=== PATIENT | male | born 1950 | race Caucasian/White ===

== ENCOUNTER 2022-04-05 15:07 | Outpatient (CLI) | payer MEDICARE, OTHER ==
[~2022-04-05] VITALS: Ht 182.9 cm; Wt 145.1 kg
[2022-04-05 16:53] LABS: BASOPHILS % (AUTO) 0.3 % (0-1); EOSINOPHILS # (AUTO) 0.4 X10'3 (0-0.9); EOSINOPHILS % (AUTO) 4.3 % (0-6); LYMPHOCYTES # (AUTO) 1.3 X10'3 (1.1-4.8); LYMPHOCYTES % (AUTO) 15.5 % (21-51); MEAN CORPUSCULAR HGB CONC 34.2 g/dL (33.0-36.5); MEAN CORPUSCULAR VOLUME 84.9 FL (78-98); MONOCYTES # (AUTO) 0.9 X10'3 (0-0.9); MONOCYTES % (AUTO) 10.9 % (2-12); NEUTROPHILS # (AUTO) 5.9 X10'3 (1.8-7.7); PRE OP HEMATOCRIT 41.7 % (42.0-52.0); PRE OP HEMOGLOBIN 14.2 g/dL (14.0-17.9); PRE OP PLATELET COUNT 175 X10'3 (140-440); RED BLOOD COUNT 4.91 X10'6 (4.70-6.10); RED CELL DISTRIBUTION WIDTH 14.6 % (11.5-14.5)
[2022-04-05 17:07] LABS: ALBUMIN 3.8 G/DL (3.4-5.0); ALKALINE PHOSPHATASE 75 IU/L (46-116); BLOOD UREA NITROGEN 16 MG/DL (7-18); BUN/CREATININE RATIO 21.6 (5.4-32.0); CALCIUM 9.1 MG/DL (8.5-10.1); CHLORIDE 101 MMOL/L (99-107); CREATININE 0.74 MG/DL (0.60-1.10); PRE OP ALT 41 U/L (30-65); PRE OP ANION GAP 9 (8-16); PRE OP AST 20 U/L (10-37); PRE OP BILIRUB, TOTAL 0.5 MG/DL (0.0-1.0); PRE OP GLUCOSE 99 MG/DL (70-104); PRE OP POTASSIUM 4.2 MMOL/L (3.4-5.1); PRE OP SODIUM 137 MMOL/L (135-145); TOTAL CARBON DIOXIDE 27.1 MMOL/L (24-32); TOTAL PROTEIN 7.7 G/DL (6.4-8.2); eGFR > 90 ML/MIN
[2022-04-05] MEDS ORDERED: HYDR-3973 PO (17:21)
[2022-04-05] MEDS ORDERED: MULT-1085 PO (17:21)
[2022-04-05] MEDS ORDERED: PRAV20TA4 PO (17:21)
[2022-04-05] MEDS ORDERED: CELE-85 PO (17:21)
[2022-04-05] MEDS ORDERED: FLO0.4C PO (17:21)
[2022-04-05] MEDS ORDERED: GABA-534 (17:21)
[2022-04-05] MEDS ORDERED: DUTA0.5C36 PO (17:21)
[2022-04-10] MEDS ORDERED: ringers solution, lacted 1,000 ML IV SCH (05:00)
[2022-04-10] MEDS ORDERED: metoclopramide 5 mg/ml inj IV ONE (05:30)
[2022-04-10] MEDS ORDERED: oxyCODONE SR 10mg (sust. release) tab -2 tabs (20mg) PO ONE (05:30)
[2022-04-10] MEDS ORDERED: gabapentin 300mg capsule PO ONE (05:30)
[2022-04-10] MEDS ORDERED: famotidine 20mg tablet PO ONE (05:30)
[2022-04-10] MEDS ORDERED: acetaminophen 325mg tablet PO ONE (05:30)
[2022-04-10] MEDS ORDERED: ceFAZolin inj. 3,000 MG in normal saline 100ml IV soln 100 ML IV ONE (05:30)
[2022-04-10] MEDS ORDERED: celeCOXIB 100mg capsule PO ONE (05:30)
[2022-04-10] MEDS ORDERED: vancomycin 1,500 MG in NS 300ml IV soln IV ONE (05:30)
[2022-04-10] MEDS ORDERED: tranexamic acid inj. 1,000 MG in normal saline 100ml IV soln 90 ML IV ONE (05:30)
== END 2022-04-05 23:59 | disposition home or self-care (01) ==
LOC: LAB 15:07 → EDSTATUS 04-10 11:15
PROVIDERS: ATTEND Orthopaedic Surgery
DX: Z01.818 Encounter for other preprocedural examination (principal); M17.12 Unilateral primary osteoarthritis, left knee
CPT/HCPCS: 36415; 80053; 85025; 86885; 86900; 86901; 87081; 93005; J0690; J3370; J3490; J7040; J7120

== ENCOUNTER 2022-05-29 07:10 | Inpatient (IN) | payer MEDICARE, OTHER ==
[2022-05-23 10:49] LABS: ALBUMIN 3.6 G/DL (3.4-5.0); ALBUMIN/GLOBULIN RATIO 0.9 (1.1-1.5); ALKALINE PHOSPHATASE 67 IU/L (46-116); BLOOD UREA NITROGEN 12 MG/DL (7-18); CALCIUM 8.6 MG/DL (8.5-10.1); CHLORIDE 103 MMOL/L (99-107); CREATININE 0.63 MG/DL (0.60-1.10); PRE OP ALT 45 U/L (30-65); PRE OP ANION GAP 7 (8-16); PRE OP AST 29 U/L (10-37); PRE OP BILIRUB, TOTAL 0.5 MG/DL (0.0-1.0); PRE OP GLUCOSE 112 MG/DL (70-104); PRE OP SODIUM 137 MMOL/L (135-145); TOTAL CARBON DIOXIDE 26.8 MMOL/L (24-32); TOTAL PROTEIN 7.6 G/DL (6.4-8.2); eGFR > 90 ML/MIN
[2022-05-23 10:50] LABS: BASOPHILS % (AUTO) 0.4 % (0-1); EOSINOPHILS # (AUTO) 0.2 X10'3 (0-0.9); EOSINOPHILS % (AUTO) 3.3 % (0-6); LYMPHOCYTES # (AUTO) 1.3 X10'3 (1.1-4.8); LYMPHOCYTES % (AUTO) 21.1 % (21-51); MEAN CORPUSCULAR HEMOGLOBIN 28.7 PG (27.0-31.0); MEAN CORPUSCULAR HGB CONC 33.8 g/dL (33.0-36.5); MEAN CORPUSCULAR VOLUME 84.9 FL (78-98); MEAN PLATELET VOLUME 7.1 FL (7.4-10.4); MONOCYTES # (AUTO) 0.8 X10'3 (0-0.9); MONOCYTES % (AUTO) 12.7 % (2-12); NEUTROPHILS # (AUTO) 3.9 X10'3 (1.8-7.7); NEUTROPHILS % (AUTO) 62.5 % (42-75); PRE OP HEMATOCRIT 41.1 % (42.0-52.0); PRE OP HEMOGLOBIN 13.9 g/dL (14.0-17.9); PRE OP PLATELET COUNT 179 X10'3 (140-440); PRE OP POTASSIUM 4.5 MMOL/L (3.4-5.1); RED BLOOD COUNT 4.84 X10'6 (4.70-6.10); RED CELL DISTRIBUTION WIDTH 14.4 % (11.5-14.5)
[~2022-05-29] VITALS: Ht 182.9 cm; Wt 145.2 kg
[2022-05-29] VITALS (13 sets, daily range): BP systolic 96–153; BP diastolic 59–86
[~2022-05-29 07:10] MED LIST: ALBU8HFA INH; CELE-85 PO; DUTA0.5C36 PO; FLO0.4C PO; GABA-534; HYDR-3973 PO; HYDROmorphone inj. 0.5 MG/0.5 ML DISP.SYRIN IV PRN; MULT-1085 PO; PRAV20TA4 PO; acetaminophen 325mg tablet PO ONE; acetaminophen 325mg tablet PO PRN; bisacodyl 10mg suppository rectal RC PRN; celeCOXIB 100mg capsule PO ONE; diphenhydrAMINE 25mg capsule PO PRN; famotidine 20mg tablet PO ONE; gabapentin 300mg capsule PO ONE; magnesium hydroxide 30ml (MOM) UD suspension PO PRN; metoclopramide 5 mg/ml inj IV ONE; naloxone 0.4 mg/ml inj IV PRN; ondansetron/PF 4mg/2ml inj IV PRN; oxyCODONE SR 10mg (sust. release) tab -2 tabs (20mg) PO ONE; ringers solution, lacted 1,000 ML IV SCH; tranexamic acid inj. 1,000 MG in 0.7% saline 100 ML PMX IV ONE; vancomycin 1,500 MG in NS 300ml IV soln IV ONE
--- NOTE | 2022-05-29 07:15 | NUR ---
TOTAL JOINT CHARTING. PT COMPLETED THE 5 DAYS OF HIBICLENS SHOWERS. DID NOT PROVIDE PT WITH NASAL OINTMENT PREOP. STATES WATCHED THE TOTAL JOINT VIDEO AT HOME. CSM'S INTACT - STATES SLIGHT NUMBNESS AND TINGLING TO BILAT LE INTERMITTENTLY. STRONG PALPABLE LEFT DORSAL PEDIS PULSE MARKED. Addendum: 05/29/22 at 0919 by Alexandra Tesfaye RN Amended: Links added.
[2022-05-29] MEDS: ceFAZolin inj. 3,000 MG in normal saline 100ml IV soln 100 ML IV ONE ×2 (07:56→11:10)
[2022-05-29] MEDS ORDERED: ceFAZolin/D5W- 1GM premix 50 ML IV SCH (08:00)
[2022-05-29] MEDS: gabapentin 300mg capsule PO SCH ×3 (08:00→20:11)
[2022-05-29] MEDS: multivitamins, therapeutics tablet PO SCH (08:00)
[2022-05-29] MEDS: ascorbic acid 500mg tablet PO SCH ×2 (08:00→20:11)
[2022-05-29] MEDS: aspirin 325mg tablet PO SCH (08:30)
[2022-05-29] MEDS ORDERED: epiNEPHrine 1 mg/ml inj ONE (10:38)
[2022-05-29] MEDS ORDERED: vancomycin 1,000mg inj ONE (10:38)
[2022-05-29] MEDS ORDERED: cloNIDine hcl/PF 100mcg/ml inj ONE (10:38)
[2022-05-29] MEDS ORDERED: ketorolac trometh. 30mg/ml inj. ONE (10:39)
[2022-05-29] MEDS ORDERED: ROPIVAcaine 0.5% (5mg/ml) 30ml vial ONE (10:39)
[2022-05-29] MEDS ORDERED: MIDAZolam 1mg/ml 10ml vial ONE (10:53)
[2022-05-29] MEDS ORDERED: fentaNYL/PF 50MCG/1 ML 2ML syringe ONE (10:54)
[2022-05-29] MEDS ORDERED: propofol inj 20 ML IV ONE (11:26)
[2022-05-29] MEDS ORDERED: ondansetron/PF 4mg/2ml inj IV PRN (11:45)
[2022-05-29] MEDS ORDERED: proCHLORperazine 10 MG/2 ml inj IV PRN (11:45)
[2022-05-29] MEDS ORDERED: ringers solution, lacted 1,000 ML IV SCH (11:45)
[2022-05-29] MEDS ORDERED: meperidine/PF 25mg/ml syringe IV PRN ×3 (11:45)
[2022-05-29] MEDS ORDERED: morphine 2 MG/ML inj. syringe IV PRN (11:45)
[2022-05-29] MEDS ORDERED: ROPIVAcaine 0.2% (10 MG/5 ML) BOLUS INJECTION ADDCANAL PRN (11:45)
[2022-05-29] MEDS ORDERED: morphine 4 MG/ML inj SYRINge IV PRN (11:45)
[2022-05-29] MEDS: ceFAZolin inj. 3,000 MG in normal saline 100ml IV soln 100 ML IV SCH ×2 (13:00→20:29)
--- NOTE | 2022-05-29 13:17 | NUR ---
Received from OR via BED, accompanied by Anesthesiologist and report given by GAYATRI Anesthesiologist. PATIENT WAKING UP, DENIES PAIN, V/S WNL, SCD ON, 18G TO DYLAN LEVINg to LEFT KNEE C/D/I with POWDER PACK. Addendum: 05/29/22 at 1318 by Sean Esqueda RN Amended: Links added.
[2022-05-29] MEDS: ROPIVAcaine 0.2%/PF PUMP/bolus 545 ML ADDCANAL SCH (13:34)
--- NOTE | 2022-05-29 14:28 | NUR ---
Patient in room ORTHO 4009A. I have received report from JAMISON CANO FROM [facility] and had the opportunity to ask questions and assume patient care.
--- NOTE | 2022-05-29 14:38 | NUR ---
PATIENT HAS MET ALL CRITERIA FOR TRANSFER TO ORTHO FLOOR. VSS. DRESSINGS INTACT. BED LOW, CALL LIGHT PRESENT AND 2 RAILS UP. RN PRESENT TO ACCEPT CARE OF PATIENT AND REPORT HAS BEEN CALLED. ALL QUESTIONS ANSWERED TO ACCEPTING RN. Addendum: 05/29/22 at 1456 by Sean Esqueda RN Amended: Links added.
[2022-05-29] MEDS: potassium cl 20mEq in 1/2 NS 1,000 ML IV SCH ×3 (14:40→22:40)
[2022-05-29] MEDS: oxyCODONE/APAP 10/325mg tablet PO PRN ×2 (15:04→20:15)
[2022-05-29] MEDS ORDERED: tranexamic acid inj. 1,400 MG in normal saline 100ml IV soln 86 ML IV ONE (15:39)
[2022-05-29] MEDS ORDERED: cefazolin/dext.iso 2gm/100ml 100 ML IV SCH (16:00)
[2022-05-29] MEDS: HYDROmorphone 1 mg/ml syringe IV PRN (16:18)
[2022-05-29] MEDS ORDERED: albuterol 2.5 MG/3 ML nebule NEB PRN (18:15)
--- NOTE | 2022-05-29 18:25 | NUR ---
Patient in room ORTHO 4008. I have received report from Angelita SWIFT and had the opportunity to ask questions and assume patient care. Addendum: 05/29/22 at 1918 by Ginger Herrera RN Amended: Links added.
--- NOTE | 2022-05-29 19:41 | NUR ---
Problems reprioritized. Patient report given, questions answered & plan of care reviewed with JAMISON GENTILE.
[2022-05-29] MEDS: tamsulosin 0.4mg capsule PO SCH (20:10)
[2022-05-29] MEDS: sennosides 8.6mg tablet PO SCH (20:11)
[2022-05-29] MEDS ORDERED: vancomycin inj 1,750 MG in normal saline 500ml IV soln 350 ML IV ONE (21:00)
[2022-05-30] VITALS (7 sets, daily range): BP systolic 156–189; BP diastolic 80–93
[2022-05-30] MEDS: potassium cl 20mEq in 1/2 NS 1,000 ML IV SCH ×3 (00:57→22:40)
[2022-05-30] MEDS: oxyCODONE/APAP 10/325mg tablet PO PRN ×4 (01:50→20:30)
[2022-05-30] MEDS: HYDROmorphone 1 mg/ml syringe IV PRN ×3 (04:24→16:27)
[2022-05-30 06:50] LABS: BASOPHILS % (AUTO) 0.2 % (0-1); EOSINOPHILS # (AUTO) 0.2 X10'3 (0-0.9); EOSINOPHILS % (AUTO) 2.1 % (0-6); HEMATOCRIT 37.1 % (42.0-52.0); HEMOGLOBIN 12.7 g/dl (14.0-17.9); LYMPHOCYTES # (AUTO) 1.1 X10'3 (1.1-4.8); LYMPHOCYTES % (AUTO) 11.7 % (21-51); MEAN CORPUSCULAR HEMOGLOBIN 29.2 PG (27.0-31.0); MEAN CORPUSCULAR HGB CONC 34.1 g/dL (33.0-36.5); MEAN CORPUSCULAR VOLUME 85.7 FL (78-98); MEAN PLATELET VOLUME 6.9 FL (7.4-10.4); NEUTROPHILS # (AUTO) 7.1 X10'3 (1.8-7.7); PLATELET COUNT 155 X10'3 (140-440); RED BLOOD COUNT 4.33 X10'6 (4.70-6.10); RED CELL DISTRIBUTION WIDTH 14.3 % (11.5-14.5); WHITE BLOOD COUNT 9.5 X10'3 (4.5-11.0)
[2022-05-30 07:25] LABS: ANION GAP 11 (8-16); CHLORIDE 103 MMOL/L (99-107); POTASSIUM 4.5 MMOL/L (3.5-5.1); SODIUM 140 MMOL/L (135-145); TOTAL CARBON DIOXIDE 25.8 MMOL/L (24-32)
[2022-05-30] MEDS: tamsulosin 0.4mg capsule PO SCH ×2 (08:08→20:31)
[2022-05-30] MEDS: gabapentin 300mg capsule PO SCH ×3 (08:08→20:31)
[2022-05-30] MEDS: multivitamins, therapeutics tablet PO SCH (08:08)
[2022-05-30] MEDS: aspirin 325mg tablet PO SCH (08:08)
[2022-05-30] MEDS: ascorbic acid 500mg tablet PO SCH ×2 (08:09→20:32)
--- NOTE | 2022-05-30 11:12 | NUR ---
Noted pt s/p left TKA. Written protein education with RD contact information placed in patient's chart. Pt on a regular diet and eating well, documented with 100% PO intake. Will continue to follow. Addendum: 05/30/22 at [address] Amended: Links added.
[2022-05-30] MEDS ORDERED: atorvastatin 10mg tablet PO SCH (18:00)
[2022-05-30] MEDS ORDERED: dutasteride 0.5 MG capsule PO SCH (18:00)
--- NOTE | 2022-05-30 18:40 | NUR ---
Patient in room ORTHO 4006. I have received report from Alysa SWIFT and had the opportunity to ask questions and assume patient care. Addendum: 05/30/22 at 1845 by Ginger Herrera RN Amended: Links added.
[2022-05-30] MEDS: sennosides 8.6mg tablet PO SCH (20:32)
[2022-05-30] MEDS: celeCOXIB 100mg capsule PO SCH (20:35)
[2022-05-31] MEDS: oxyCODONE/APAP 10/325mg tablet PO PRN ×3 (01:29→12:49)
[2022-05-31 02:00] VITALS: BP 161/87
[2022-05-31 06:00] VITALS: BP 152/87
--- NOTE | 2022-05-31 06:25 | NUR ---
Problems reprioritized. Patient report given, questions answered & plan of care reviewed with Rama SWIFT. Addendum: 05/31/22 at 0641 by Ginger Herrera RN Amended: Links added.
--- NOTE | 2022-05-31 06:26 | NUR ---
Patient in room ORTHO 4009. I have received report from JAMISON Miles and had the opportunity to ask questions and assume patient care.
--- NOTE | 2022-05-31 06:30 | NUR ---
Problems reprioritized. Patient report given, questions answered & plan of care reviewed with Rama SWIFT. Addendum: 05/31/22 at 0643 by Ginger Herrera RN Amended: Links added.
[2022-05-31] MEDS: gabapentin 300mg capsule PO SCH ×2 (07:04→12:50)
[2022-05-31] MEDS: multivitamins, therapeutics tablet PO SCH (07:04)
[2022-05-31] MEDS: tamsulosin 0.4mg capsule PO SCH (07:04)
[2022-05-31] MEDS: ascorbic acid 500mg tablet PO SCH (07:04)
[2022-05-31] MEDS: celeCOXIB 100mg capsule PO SCH (07:05)
[2022-05-31 08:19] LABS: BASOPHILS % (AUTO) 0.2 % (0-1); EOSINOPHILS # (AUTO) 0.2 X10'3 (0-0.9); EOSINOPHILS % (AUTO) 1.4 % (0-6); HEMATOCRIT 38.2 % (42.0-52.0); HEMOGLOBIN 12.8 g/dl (14.0-17.9); LYMPHOCYTES # (AUTO) 0.9 X10'3 (1.1-4.8); LYMPHOCYTES % (AUTO) 8.2 % (21-51); MEAN CORPUSCULAR HGB CONC 33.5 g/dL (33.0-36.5); MEAN CORPUSCULAR VOLUME 86.7 FL (78-98); MEAN PLATELET VOLUME 6.8 FL (7.4-10.4); MONOCYTES # (AUTO) 1.3 X10'3 (0-0.9); MONOCYTES % (AUTO) 11.4 % (2-12); NEUTROPHILS # (AUTO) 8.7 X10'3 (1.8-7.7); NEUTROPHILS % (AUTO) 78.8 % (42-75); PLATELET COUNT 155 X10'3 (140-440); RED CELL DISTRIBUTION WIDTH 14.4 % (11.5-14.5); WHITE BLOOD COUNT 11.1 X10'3 (4.5-11.0)
[2022-05-31] MEDS: aspirin 325mg tablet PO SCH (08:49)
[2022-05-31] MEDS: ROPIVAcaine 0.2%/PF PUMP/bolus 545 ML ADDCANAL SCH (09:11)
[2022-05-31 10:00] VITALS: BP 141/66
--- NOTE | 2022-05-31 14:00 | NUR ---
I have reviewed and agree with all interventions, assessments performed and documented by JOHN Ontiveros.
--- NOTE | 2022-05-31 15:00 | NUR ---
Patient discharge home with spouse. Discharge information was review with patient and patient spouse, whom both verbalize understanding. Staff then assisted patient to personal vehicle with all belongings.
== END 2022-05-31 15:00 | disposition home or self-care (01) | DRG 470 ==
LOC: PAS 07:10 → ORTHO 4S 17:18
PROVIDERS: ADMIT Orthopaedic Surgery; ATTEND Orthopaedic Surgery
PROC: 3E0T3BZ Introduction of Anesthetic Agent into Peripheral Nerves and Plexi, Percutaneous Approach (ICD-10-PCS; 2022-05-29)
PROC: 3E0T33Z Introduction of Anti-inflammatory into Peripheral Nerves and Plexi, Percutaneous Approach (ICD-10-PCS; 2022-05-29)
PROC: 0SRD069 Replacement of Left Knee Joint with Oxidized Zirconium on Polyethylene Synthetic Substitute, Cemented, Open Approach (ICD-10-PCS; principal; 2022-05-29 10:53)
DX: M17.12 Unilateral primary osteoarthritis, left knee (principal); Z68.41 Body mass index [BMI] 40.0-44.9, adult; E66.01 Morbid (severe) obesity due to excess calories; N40.0 Benign prostatic hyperplasia without lower urinary tract symptoms; Z79.899 Other long term (current) drug therapy
CPT/HCPCS: 36415; 73560; 80051; 80053; 82948; 85025; 86885; 86900; 86901; 87081; 87811; 94760; 97110; 97116; 97161; 97530; A4215; A4615; A7000; C1713; C1776; G0378; J0171; J0690; J0735; J1170; J1885; J2250; J2704; J2765; J2795; J3010; J3370; J3480; J3490; J7040; J7120

== ENCOUNTER 2023-02-26 16:12 | Emergency (ER) | payer MEDICARE, OTHER ==
[~2023-02-26] VITALS: Ht 182.9 cm; Wt 136.0 kg
[~2023-02-26 16:12] MED LIST changes: -HYDROmorphone inj. 0.5 MG/0.5 ML DISP.SYRIN IV PRN; -acetaminophen 325mg tablet PO ONE; -acetaminophen 325mg tablet PO PRN; -bisacodyl 10mg suppository rectal RC PRN; -celeCOXIB 100mg capsule PO ONE; -diphenhydrAMINE 25mg capsule PO PRN; -famotidine 20mg tablet PO ONE; -gabapentin 300mg capsule PO ONE; -magnesium hydroxide 30ml (MOM) UD suspension PO PRN; -metoclopramide 5 mg/ml inj IV ONE; -naloxone 0.4 mg/ml inj IV PRN; -ondansetron/PF 4mg/2ml inj IV PRN; -oxyCODONE SR 10mg (sust. release) tab -2 tabs (20mg) PO ONE; -ringers solution, lacted 1,000 ML IV SCH; -tranexamic acid inj. 1,000 MG in 0.7% saline 100 ML PMX IV ONE; -vancomycin 1,500 MG in NS 300ml IV soln IV ONE
[2023-02-26 16:22] VITALS: BP 161/79
[2023-02-26] MEDS ORDERED: bacitracin 15gm ointment TP ONE (17:30)
[2023-02-26] MEDS ORDERED: LIDOcaine 1% 30ml preserv. free vial IJ ONE (17:30)
[2023-02-26] MEDS ORDERED: LIDOcaine 1% (10mg/ml)w/preservative inj. 20ml MDV ONE (17:40)
== END 2023-02-26 18:12 | disposition home or self-care (01) ==
LOC: ER 16:13
DX: S61.212A Laceration without foreign body of right middle finger without damage to nail, initial encounter (principal); Z79.899 Other long term (current) drug therapy; W45.8XXA Other foreign body or object entering through skin, initial encounter; Y93.89 Activity, other specified; Y92.89 Other specified places as the place of occurrence of the external cause; Y99.8 Other external cause status
CPT/HCPCS: 12001; 73140; 99283; J3490

== ENCOUNTER 2024-03-02 09:31 | Day surgery (SDC) | payer MEDICARE, OTHER ==
[2024-02-28 12:18] LABS: BASOPHILS % (AUTO) 0.2 % (0-1); EOSINOPHILS # (AUTO) 0.3 X10'3 (0-0.9); HEMATOCRIT 41.9 % (42.0-52.0); HEMOGLOBIN 14.4 g/dl (14.0-17.9); LYMPHOCYTES # (AUTO) 1.6 X10'3 (1.1-4.8); LYMPHOCYTES % (AUTO) 19.2 % (21-51); MEAN CORPUSCULAR HEMOGLOBIN 29.7 PG (27.0-31.0); MEAN CORPUSCULAR HGB CONC 34.5 g/dL (33.0-36.5); MEAN CORPUSCULAR VOLUME 86.1 FL (78-98); MONOCYTES # (AUTO) 0.8 X10'3 (0-0.9); MONOCYTES % (AUTO) 9.2 % (2-12); NEUTROPHILS # (AUTO) 5.7 X10'3 (1.8-7.7); NEUTROPHILS % (AUTO) 68.4 % (42-75); PLATELET COUNT 185 X10'3 (140-440); RED BLOOD COUNT 4.86 X10'6 (4.70-6.10); RED CELL DISTRIBUTION WIDTH 14.5 % (11.5-14.5); WHITE BLOOD COUNT 8.4 X10'3 (4.5-11.0)
[2024-02-28 12:20] LABS: APTT 25 SECONDS (22-32)
[2024-02-28 12:23] LABS: ALBUMIN 3.5 G/DL (3.4-5.0); ANION GAP 11 (8-16); BLOOD UREA NITROGEN 16 MG/DL (7-18); BUN/CREATININE RATIO 19.5 (10.0-20.0); CALCIUM 8.5 MG/DL (8.5-10.1); CHLORIDE 104 MMOL/L (99-107); CHOL/HDL RATIO 2.8 (0.00-4.99); CHOLESTEROL 164 MG/DL (0-200); CREATININE 0.82 MG/DL (0.60-1.10); HDL CHOLESTEROL 59 MG/DL (35-60); LDL CHOLESTEROL 86 MG/DL (50-100); POTASSIUM 4.1 MMOL/L (3.5-5.1); SODIUM 140 MMOL/L (135-145); TOTAL CARBON DIOXIDE 25.2 MMOL/L (24-32); TRIGLYCERIDES 263 MG/DL (20-135); eGFR > 90 ML/MIN
[2024-02-28 12:26] LABS: GLUCOSE 120 MG/DL (70-104); INR 0.9 INR
[~2024-03-02] VITALS: Ht 177.8 cm; Wt 152.9 kg
[2024-03-02] VITALS (7 sets, daily range): BP systolic 144–189; BP diastolic 49–100; PULSE 67–83; RESP 16; TEMP 97.7; O2SAT 93–95
[~2024-03-02 09:31] MED LIST changes: +CELE-127 PO; -CELE-85 PO; -GABA-534; +GABA-535 PO
[2024-03-02] MEDS ORDERED: PRAV80TA3 PO (10:18)
[2024-03-02] MEDS ORDERED: ALBU18HF2 INH (10:18)
[2024-03-02] MEDS: diphenhydrAMINE 25mg capsule PO PRN (10:54)
[2024-03-02] MEDS: LORazepam 0.5 MG tablet PO PRN (10:54)
[2024-03-02] MEDS: normal saline 1,000 ML IV SCH (10:55)
[2024-03-02] MEDS ORDERED: fentaNYL/PF 50MCG/1 ML 2ML syringe ONE (13:12)
[2024-03-02] MEDS ORDERED: heparin 1,000unit/ml 10ml vial 10 ML ONE (13:12)
[2024-03-02] MEDS ORDERED: LIDOcaine 1% (10mg/ml) 2ml vial ONE (13:12)
[2024-03-02] MEDS ORDERED: iohexol 350MG/ML 100ml bottle IV ONE (13:12)
[2024-03-02] MEDS ORDERED: midazolam 1 mg/ML 2ml injection ONE (13:12)
[2024-03-02] MEDS ORDERED: verapamil 2.5 mg/ml inj IV ONE (13:12)
[2024-03-02] MEDS ORDERED: nitroGLYCERIN 500mcg/5mL D5W 5 ML IV ONE (13:15)
== END 2024-03-02 16:10 | disposition home or self-care (01) ==
LOC: SSTAY O 09:31
PROVIDERS: ATTEND Student in an Organized Health Care Education/Training Program
DX: R94.39 Abnormal result of other cardiovascular function study (principal); I25.10 Atherosclerotic heart disease of native coronary artery without angina pectoris; E78.00 Pure hypercholesterolemia, unspecified; G43.909 Migraine, unspecified, not intractable, without status migrainosus; G62.9 Polyneuropathy, unspecified; M19.90 Unspecified osteoarthritis, unspecified site; Z79.891 Long term (current) use of opiate analgesic; Z79.899 Other long term (current) drug therapy; Z79.01 Long term (current) use of anticoagulants
CPT/HCPCS: 36415; 80048; 80061; 85025; 85610; 85730; 93005; 93458; 99152; J1644; J2250; J3010; J3490; J7030; Q0163; Q9967; A6258; A6402; C1894

== ENCOUNTER 2024-06-23 14:03 | Outpatient (CLI) | payer MEDICARE, OTHER ==
[~2024-06-23 14:03] MED LIST changes: +ALBU18HF2 INH; -ALBU8HFA INH; -DUTA0.5C36 PO; -FLO0.4C PO; -PRAV20TA4 PO; +PRAV80TA3 PO
== END 2024-06-23 23:59 | disposition home or self-care (01) ==
LOC: RAD 14:03
PROVIDERS: ATTEND Student in an Organized Health Care Education/Training Program
DX: N43.3 Hydrocele, unspecified (principal); N44.2 Benign cyst of testis; N50.812 Left testicular pain
CPT/HCPCS: 76870; 93976

== ENCOUNTER 2024-08-18 15:58 | Emergency (ER) | payer MEDICARE, OTHER ==
[~2024-08-18] VITALS: Ht 182.9 cm; Wt 161.5 kg
[2024-08-18 16:18] VITALS: BP 167/108; PULSE 113; TEMP 97.7; O2SAT 96
[2024-08-18] MEDS ORDERED: SULF1TAB49 PO (17:49)
[2024-08-18] MEDS ORDERED: FURO-150 PO (17:49)
[2024-08-18 18:44] VITALS: RESP 20
== END 2024-08-18 18:45 | disposition home or self-care (01) ==
LOC: ER 15:59
DX: R60.0 Localized edema (principal); L03.115 Cellulitis of right lower limb; I89.0 Lymphedema, not elsewhere classified; Z79.899 Other long term (current) drug therapy; Z79.2 Long term (current) use of antibiotics
CPT/HCPCS: 99283

== ENCOUNTER 2025-02-23 09:53 | Day surgery (SDC) | payer MEDICARE, OTHER ==
[2025-02-19 11:22] LABS: BASOPHILS # (AUTO) 0.1 X10'3 (0-0.2); BASOPHILS % (AUTO) 0.6 % (0-1); EOSINOPHILS # (AUTO) 0.5 X10'3 (0-0.9); EOSINOPHILS % (AUTO) 4.7 % (0-6); HEMATOCRIT 38.8 % (42.0-52.0); HEMOGLOBIN 13.3 g/dl (14.0-17.9); LYMPHOCYTES # (AUTO) 1.5 X10'3 (1.1-4.8); LYMPHOCYTES % (AUTO) 14.8 % (21-51); MEAN CORPUSCULAR HEMOGLOBIN 28.4 PG (27.0-31.0); MEAN CORPUSCULAR HGB CONC 34.2 g/dL (33.0-36.5); MEAN CORPUSCULAR VOLUME 82.9 FL (78-98); MEAN PLATELET VOLUME 7.2 FL (7.4-10.4); MONOCYTES # (AUTO) 0.9 X10'3 (0-0.9); MONOCYTES % (AUTO) 9.5 % (2-12); NEUTROPHILS % (AUTO) 70.4 % (42-75); PLATELET COUNT 154 X10'3 (140-440); RED BLOOD COUNT 4.68 X10'6 (4.70-6.10); RED CELL DISTRIBUTION WIDTH 15.9 % (11.5-14.5)
[2025-02-19 11:35] LABS: APTT 26 SECONDS (22-32); INR 1.1 INR; PROTHROMBIN TIME 11.3 SECONDS (9.0-12.0)
[2025-02-19 11:40] LABS: ALBUMIN 3.6 G/DL (3.4-5.0); ANION GAP 8 (8-16); BLOOD UREA NITROGEN 50 MG/DL (7-18); BUN/CREATININE RATIO 24.9 (10.0-20.0); CALCIUM 8.7 MG/DL (8.5-10.1); CHLORIDE 100 MMOL/L (99-107); CHOL/HDL RATIO 2.4 (0.00-4.99); CHOLESTEROL 130 MG/DL (0-200); CREATININE 2.01 MG/DL (0.60-1.10); GLUCOSE 99 MG/DL (70-104); HDL CHOLESTEROL 55 MG/DL (35-60); LDL CHOLESTEROL 60 MG/DL (50-100); POTASSIUM 3.5 MMOL/L (3.5-5.1); SODIUM 139 MMOL/L (135-145); TRIGLYCERIDES 120 MG/DL (20-135); eGFR 33 ML/MIN
[2025-02-23] VITALS (12 sets, daily range): BP systolic 100–127; BP diastolic 40–77; PULSE 66–72; RESP 13–15; TEMP 97.9; O2SAT 96–97
[~2025-02-23] VITALS: Ht 182.9 cm; Wt 142.7 kg
[~2025-02-23 09:53] MED LIST changes: -ALBU18HF2 INH; +FURO-150 PO; +GABA-1555 PO; -GABA-535 PO; +TAMS-55 PO
[2025-02-23] MEDS ORDERED: VALS40TA11 PO (10:16)
[2025-02-23] MEDS ORDERED: AMI200T PO (10:16)
[2025-02-23] MEDS ORDERED: ROSU40TA89 PO (10:17)
[2025-02-23] MEDS ORDERED: FURO40TA4 PO (10:17)
[2025-02-23] MEDS ORDERED: POTA-366 PO (10:17)
[2025-02-23] MEDS ORDERED: METO5TAB7 PO (10:17)
[2025-02-23] MEDS ORDERED: CARV3.122 PO (10:18)
[2025-02-23] MEDS ORDERED: EMPA10TA PO (10:18)
[2025-02-23] MEDS ORDERED: APIX5TAB3 PO (10:18)
[2025-02-23] MEDS: MIDAZolam 1mg/ml 10ml vial IV ONE (14:04)
[2025-02-23] MEDS: fentaNYL/PF 50MCG/1 ML 2ML syringe IV ONE (14:04)
[2025-02-23] MEDS: normal saline 1000ml 1,000 ML IV SCH (14:04)
--- NOTE | 2025-02-23 14:13 | ELECTROCARDIOGRAPH REPORT ---
[facility] Test Date: 2025-02-23 Test Time: 14:10:46 Pat Name: IRENA MCGOVERN Department: [facility] Patient ID: [facility]-[id number] Room: Gender: M Fitness Coach: SHANELL : 1950 Requested By: AJ FLORES Order Number: [id number] Reading MD: Dr. STEVE Hardin Measurements Intervals [place] Rate: 70 P: 0 [place]: 0 QRS: 72 QRSD: 99 T: -88 QT: 378 QTc: 408 Interpretive Statements Atrial fibrillation Borderline repolarization abnormality Electronically Signed On 02-23-2025 17:52:[address] STEVE Hardin Please click the below link to view image of tracing.
--- NOTE | 2025-02-24 07:30 | CARDIOLOGY REPORT ---
DATE OF SERVICE: 02/23/2025 DICTATING PHYSICIAN: Teresita Eubanks MD DATE OF STUDY: 02/23/2025 NAME OF STUDY: Cardioversion. DESCRIPTION OF PROCEDURE: After informed consent was obtained, the patient was brought to cardiac short stay. After gradual increments of Versed and fentanyl and when conscious sedation was obtained, the patient was cardioverted without success. IMPRESSION: Unsuccessful electrical cardioversion to sinus rhythm. Teresita Eubanks MD TID: [id number] RECEIPT: [id number] CARO/ARCADIO
== END 2025-02-23 15:45 | disposition home or self-care (01) ==
LOC: SSTAY O 09:53
PROVIDERS: ATTEND Student in an Organized Health Care Education/Training Program
DX: I48.91 Unspecified atrial fibrillation (principal); I11.0 Hypertensive heart disease with heart failure; I50.9 Heart failure, unspecified; G47.33 Obstructive sleep apnea (adult) (pediatric); M19.90 Unspecified osteoarthritis, unspecified site; G62.9 Polyneuropathy, unspecified; Z79.899 Other long term (current) drug therapy; G43.909 Migraine, unspecified, not intractable, without status migrainosus
CPT/HCPCS: 36415; 80048; 80061; 85025; 85610; 85730; 92960; 93005; J2250; J3010; J7030; Z7610

== ENCOUNTER 2025-10-08 07:30 | Day surgery (SDC) | payer MEDICARE, OTHER ==
[2025-10-07 08:30] LABS: MEAN PLATELET VOLUME 6.5 FL (7.4-10.4); RED CELL DISTRIBUTION WIDTH 15.8 % (11.5-14.5)
[2025-10-07 08:48] LABS: APTT 36 SECONDS (22-32); INR 1.1 INR
[2025-10-07 08:49] LABS: CHOL/HDL RATIO 2.5 (0.00-4.99); CREATININE 1.51 MG/DL (0.60-1.10); LDL CHOLESTEROL 67 MG/DL (50-100); TOTAL CARBON DIOXIDE 31.8 MMOL/L (24-32); eGFR 45 ML/MIN
[~2025-10-08] VITALS: Ht 182.9 cm; Wt 131.1 kg
[~2025-10-08 07:30] MED LIST changes: +AMIO200T76 PO; +CARV3.122 PO; +DABI150C PO; +EMPA10TA PO; -FURO-150 PO; +FURO40TA4 PO; -GABA-1555 PO; +GABA-535 PO; +METO5TAB7 PO; -MULT-1085 PO; +POTA-366 PO; -PRAV80TA3 PO; +ROSU40TA89 PO; +TIRZ2.5P SQ; +VALS40TA11 PO
[2025-10-08 08:00] VITALS: BP 116/65; PULSE 85; RESP 16; TEMP 98.3; O2SAT 97
[2025-10-08] MEDS ORDERED: MIDAZolam 1mg/ml 10ml vial IV ONE (08:20)
[2025-10-08] MEDS ORDERED: fentaNYL/PF 50MCG/1 ML 2ML syringe IV ONE (08:20)
[2025-10-08] MEDS: potassium Cl 20 mEq SR tablet PO STA (08:29)
[2025-10-08] MEDS: normal saline 1000ml 1,000 ML IV SCH (08:29)
[2025-10-08] MEDS ORDERED: fentaNYL/PF 50MCG/1 ML 2ML syringe ONE (10:29)
[2025-10-08] MEDS ORDERED: midazolam 1 mg/ML 2ml injection ONE (10:30)
[2025-10-08] MEDS ORDERED: atropine 0.1mg/ml 10ml syringe ONE (10:40)
[2025-10-08 11:00] VITALS: BP 86/53; PULSE 59; RESP 12; O2SAT 93
--- NOTE | 2025-10-08 11:10 | ELECTROCARDIOGRAPH REPORT ---
[facility] Test Date: 2025-10-08 Test Time: 11:07:21 Pat Name: IRENA MCGOVERN [id number] Room: Gender: M [employer] Roller: LORNA : 1950 Requested By: MARIA L FLORES Order Number: [id number] Reading MD: Dr. STEVE Hardin Measurements Intervals [place] Rate: 55 P: 55 RI: 215 QRS: 82 QRSD: 111 T: 79 QT: 486 QTc: 465 Interpretive Statements Sinus bradycardia Atrial premature complex Borderline prolonged RI interval Borderline right axis deviation Electronically Signed On 10-08-2025 16:35:[address] STEVE Hardin Please click the below link to view image of tracing.
[2025-10-08 11:15] VITALS: BP 89/56; PULSE 58; RESP 13; O2SAT 96
[2025-10-08 11:30] VITALS: BP 83/50; PULSE 56; RESP 12; O2SAT 96
[2025-10-08 11:45] VITALS: BP 90/49; PULSE 66; RESP 13; O2SAT 97
[2025-10-08 12:00] VITALS: BP 94/60; PULSE 67; RESP 16; O2SAT 97
== END 2025-10-08 12:45 | disposition home or self-care (01) ==
LOC: SSTAY O 07:30
PROVIDERS: ATTEND Student in an Organized Health Care Education/Training Program
DX: I48.91 Unspecified atrial fibrillation (principal); I49.1 Atrial premature depolarization; I11.0 Hypertensive heart disease with heart failure; I50.9 Heart failure, unspecified; E78.00 Pure hypercholesterolemia, unspecified; G47.30 Sleep apnea, unspecified
CPT/HCPCS: 36415; 80048; 80061; 85025; 85610; 85730; 92960; 93005; 99152; J2250; J3010; J7030; J7120; Z7610; J0461